=== PATIENT | female | born 1990 | race Caucasian/White ===

== ENCOUNTER 2017-08-12 00:47 | Emergency (ER) | payer BC ==
[~2017-08-12] VITALS: Ht 172.7 cm; Wt 59.0 kg
[~2017-08-12 00:47] MED LIST: AMOXICILLIN PO; CIPRO PO; FLEXERIL10 MG PO; IBUPROFEN PO; NO MEDICATIONS; PHENERGAN PO; VOLTAREN75 MG PO
== END 2017-08-12 02:45 | disposition left against medical advice (07) ==
LOC: SED 00:47
DX: S01.01XA Laceration without foreign body of scalp, initial encounter (principal); S09.90XA Unspecified injury of head, initial encounter; F17.200 Nicotine dependence, unspecified, uncomplicated; Z88.1 Allergy status to other antibiotic agents; W01.0XXA Fall on same level from slipping, tripping and stumbling without subsequent striking against object, initial encounter; Y92.9 Unspecified place or not applicable
CPT/HCPCS: 12002; 99283